=== PATIENT | female | born 1965 | race Caucasian/White ===

== ENCOUNTER 2016-07-28 10:41 | Outpatient (CLI) | payer OTHER ==
--- NOTE | 2016-07-28 11:59 | DIAGNOSTIC IMAGING REPORT ---
PROCEDURE: MG UNILATERAL DIAG-LT W/CAD INDICATION: Follow-up parenchymal density in the upper left breast. TECHNIQUE: CC and true-lateral digital views of left breast. In addition, spot compression CC and MLO views were obtained of the upper outer left breast (region of clinical concern). Finally, high-resolution left breast ultrasound was performed (18 mHz). COMPARISON: Comparison made to baseline screening mammogram study from [facility] in [facility] on 07/07/2016. FINDINGS: MAMMOGRAM: Computer-aided detection applied. Moderately dense parenchymal pattern. There is asymmetric normal tissue in the upper outer left breast. No evidence of mass or suspicious calcification. BREAST ULTRASOUND: Normal parenchyma. No evidence of mass or cyst. IMPRESSION: 1. Negative mammogram and negative left breast ultrasound with confirmation of normal asymmetric parenchyma in the upper outer left breast. No evidence of mass or underlying abnormality. 2. Findings discussed with the patient. 3. Resume routine screening schedule (June 2017). RESULT CODE: 1- Negative. A. A negative report should not delay biopsy if a dominant or clinically suspicious mass is present. 10-15% of cancers are not identified by x-ray. B. A negative report may reinforce clinical impression. C. Adenosis and dense breasts may obscure an underlying neoplasm. D. False positive reports average 6-10%. E.. A yearly screening mammogram is recommended. A reminder letter will be scheduled.
== END 2016-07-28 23:00 ==
LOC: MAM SRH 10:41
DX: R92.8 Other abnormal and inconclusive findings on diagnostic imaging of breast (principal)